=== PATIENT | female | born 1985 ===

== ENCOUNTER 2020-01-17 13:00 | Outpatient (CLI) | payer MEDICAID ==
--- NOTE | 2020-01-17 19:30 | Consultation ---
DATE OF CONSULTATION: 01/17/2020 CHIEF COMPLAINT: Dysphagia to solids. HISTORY OF PRESENT ILLNESS: The patient is a 34-year-old female without any significant past medical history complaining of solid dysphagia, getting worse over the last three months. PAST MEDICAL HISTORY: None. PAST SURGICAL HISTORY: None. MEDICATIONS: Prozac. Please see medication reconciliation list. ALLERGIES: Penicillin. FAMILY HISTORY: No family history of GI malignancies. SOCIAL HISTORY: The patient used to be a heavy drinker, but now she states she only drinks occasionally. She smokes E-cigarettes now. REVIEW OF SYSTEMS: Positive for only solid dysphagia, otherwise negative. PHYSICAL EXAMINATION: GENERAL: This is a well-developed female, in no acute distress HEENT: Normocephalic and atraumatic. Sclerae anicteric. NECK: Supple. No evidence of obvious lymphadenopathy. CARDIOVASCULAR: Regular rate and rhythm. Plus S1 and S2. LUNGS: Clear to auscultation bilaterally. ABDOMEN: Positive bowel sounds. Soft, nontender. No rebound. No guarding. No peritoneal sign. EXTREMITIES: No cyanosis. No clubbing. No edema. ASSESSMENT AND PLAN: The patient is a 34-year-old female with solid dysphagia. RECOMMENDATIONS: The patient to have an endoscopy. The risks and benefits of procedure was explained to the patient. We will plan to schedule when the authorization is obtained. Clay Campos M.D. DR: Juan JOB#: [id number] CC:
== END 2020-01-17 15:00 | disposition home or self-care (01) ==
LOC: PAN 13:00
DX: R13.10 Dysphagia, unspecified (principal); F17.200 Nicotine dependence, unspecified, uncomplicated
CPT/HCPCS: G0463